=== PATIENT | female | born 1960 | race Caucasian/White ===

== ENCOUNTER 2019-05-24 10:53 | Day surgery (SDC) | payer BC ==
[~2019-05-24 10:53] MED LIST: CEFAZOLIN 2 Gram 2 GM/50 ML BAG IVPB ONE; CELECOXIB 100 MG CAPSULE PO ONE; FAMOTIDINE 20MG TABLET PO ONE; MECLIZINE 25 MG TABLET PO ONE; METOCLOPRAMIDE 10 MG TABLET PO ONE; VANCOMYCIN 1GM/200ML PREMIX 1 GM/200 ML PIGGYBACK IVPB ONE
[2019-05-24] MEDS ORDERED: ROPIVACAINE HCL (NAROPIN) /PF 5MG/ML 20ML VIAL IV ONE (10:54)
[2019-05-24] MEDS ORDERED: MAGNESIUM SULFATE 8 MEQ(1GM)/2ML VIAL IV ONE (10:54)
[2019-05-24] MEDS ORDERED: DEXAMETHASONE 4 MG/ML 1ML VIAL IVP ONE (10:54)
[2019-05-24] MEDS ORDERED: MIDAZOLAM HCL 2MG/2ML VIAL IV ONE (10:54)
[2019-05-24] MEDS ORDERED: PROPOFOL 10 MG/ML VIAL IV ONE (10:54)
[2019-05-24] MEDS ORDERED: KETAMINE HCL 100MG/1ML VIAL INJ ONE (10:54)
[2019-05-24] MEDS ORDERED: RINGERS SOLUTION,LACTATED 1,000 ML IV ONE ×3 (11:20→12:43)
[2019-05-24] MEDS ORDERED: BUPIVACAINE 0.5% W/EPI MPF 30 ML VIAL SQ ONE (12:41)
[2019-05-24] MEDS ORDERED: TRANEXAMIC ACID 1,000 MG/10 ML ML IU ONE (12:41)
[2019-05-24] MEDS ORDERED: TRANEXAMIC ACID 1,000 MG/10 ML ML IV ONE (12:41)
[2019-05-24] MEDS ORDERED: KETOROLAC 30 MG/ML VIAL IVP PRN (13:41)
[2019-05-24] MEDS ORDERED: HYDROCODONE/APAP 10/325 TABLET PO PRN (13:41)
[2019-05-24] MEDS ORDERED: ACETAMINOPHEN 325 MG TAB PO PRN (13:41)
[2019-05-24] MEDS ORDERED: MAGNESIUM HYDROXIDE 30 ML UDC PO PRN (13:41)
[2019-05-24] MEDS ORDERED: DIPHENHYDRAMINE HCL 25 MG CAPSULE PO PRN (13:41)
[2019-05-24] MEDS ORDERED: ZOLPIDEM TARTRATE 5 MG TABLET PO PRN (13:41)
[2019-05-24] MEDS ORDERED: AL HYDROX/MAG HYDROX 30ML UD PO PRN (13:41)
[2019-05-24] MEDS ORDERED: TRAMADOL HCL 50 MG TABLET PO PRN (13:41)
[2019-05-24] MEDS ORDERED: NALOXONE 0.4 MG/1 ML VIAL IVP PRN (13:41)
[2019-05-24] MEDS ORDERED: BISACODYL 10 MG SUPP RC PRN (13:41)
[2019-05-24] MEDS ORDERED: ACETAMINOPHEN W/ CODEINE 300MG/60MG TABLET PO PRN ×2 (13:41)
[2019-05-24] MEDS ORDERED: HYDROMORPHONE HCL 2 MG/ML VIAL IM PRN (13:41)
[2019-05-24] MEDS: POTASSIUM CHLORIDE/D5-0.9%NACL 20 MEQ/1,000 ML BAG IV SCH ×2 (14:43→23:35)
[2019-05-24 15:29] LABS: ABO GROUP A; ANTIBODY SCREEN NEGATIVE (NEGATIVE); RH TYPE NEGATIVE
[2019-05-24] MEDS: PANTOPRAZOLE SODIUM 40 MG TABLET PO SCH (16:41)
[2019-05-24] MEDS: METOPROLOL SUCC 50 MG TABLET PO SCH ×2 (17:12→17:13)
[2019-05-24] MEDS: HYDROCHLOROTHIAZIDE 25 MG TABLET PO SCH (17:15)
[2019-05-24] MEDS: VALSARTAN 80 MG TAB PO SCH (17:15)
[2019-05-24] MEDS: ONDANSETRON HCL IV 4 MG/2 ML VIAL IVP PRN (17:34)
--- NOTE | 2019-05-24 17:47 | Rehab Evaluation ---
Patient Information - Patient Information Diagnosis: DJD L knee Ordered Treatment: PT Evaluate and Treat Status: Initial Evaluation Surgery: Yes (L TKA) Date of Surgery: 05/24/19 Past Medical/Surgical Hx: PAST MEDICAL/SURGICAL HISTORY Surgery to Affected Area? No Recent Surgery? Past Surgical History HYST C SCOPES BILAT CTR BACK INJS. PMH - Respiratory Hx Respiratory Disorders Yes Hx Bronchitis Yes: NOTHING RECENT PMH - Cardiovascular Hx Cardiovascular Disorders Yes Hx Hypertension Yes: ON MEDS WITH FAIR CONTROL Exercise Tolerance Good PMH - Neuro Hx Neurological Disorders No PMH - GI Hx Gastrointestinal Disorders Yes Hx Gastroesophageal Reflux Yes: CONTROLLED WITH MEDS PMH - Hx Genitourinary Disorders No Comment: S/P HYST PMH - Endocrine Hx Endocrine Disorders Yes Hx of IDDM Yes: HYPO ON MEDS PMH - Musculoskeletal Hx Musculoskeletal Disorders Yes Hx Arthritis Yes: LEFT KNEE PMH - Psych Hx Psychiatric Problems No PMH - Hematology/Oncology Hx Hematology/Oncology No Disorders Premorbid Status: Detail (The patient was independent with all mobility prior to surgery.) Social History: Detail (The patient lives with spouse in a one story house with 2 steps at the enterance and no handrails. The bathroom is equipped with a tub/shower combination, standard height toilet and shower bench. No grab bars are present in the bathroom. The patient has a standard walker and single point cane.) Precautions: [place], Fall, Other (WBAT on the L LE.) - Time With Patient Total Time Spent With Patient (Min): 30 Treatment Procedures: Detail (Initial Evaluation, low complexity, gait training) Subjective Information - Subjective Information Per Patient (The patient had minimal complaints of L knee pain. The patient did complain of nausea after ambulating.) Objective Data - Mental Status Patient Orientation: Oriented x3 - Visual Perception Appears within normal limits for therapeutic activities - ROM Not within normal limits (L knee AROM is limited as to be expected following surgery. All other LE AROM is WFL.) - Strength/Tone Not within normal limits (The patient's R LE stength was WFL. The patient's L LE strength was not tested however patient functionally demonstrated weakness ie: patient required assist with L LE with supine to sit.) - Bed Mobility Independent (The patient requires minimal PA with lifting L LE with supine to and from sit, the patient is independent with upper body.) - Transfers Independent (The patient is independent with sit to and from stand transfer.) - Balance Balance Sitting: Good Balance Standing: Good - Sensation Intact - Gait Detail (The patient ambulated with front wheeled walker a distance of 40 feet x 1 with supervision for safety, WBAT on L LE.) Therapy Assessment - Therapy Assessment Detail (The patient was independent with transfers and required supervision for safety only with ambulation. The patient required minimal assistance with lifting LE with bed mobility. The patient will require 1-2 sessions to complete PT goals.) Problem List - Problem List Physical Therapy Problem List: Detail (1) Decreased L knee AROM 2) Decreased L knee strength) Goals - Goals Physical Therapy Goals: 1) The patient will be independent with TKA HEP. 2) The patient will ambulate household distances with appropriate assistive device WBAT on L LE. 3) The patient will ambulate on stairs using proper technique with supervision for safety. Prognosis - Prognosis Good Plan - Plan Physical Therapy Plan: PT 1-2 sessions for gait training on levels and stairs and instruction in HEP.
[2019-05-24] MEDS: HYDROCODONE/APAP 10/325 TABLET PO PRN (18:10)
[2019-05-24] MEDS: DOCUSATE SODIUM 100 MG CAPSULE PO SCH (21:38)
[2019-05-24] MEDS: CEFAZOLIN 2 Gram 2 GM/50 ML BAG IVPB SCH (21:39)
[2019-05-25] MEDS: HYDROCODONE/APAP 10/325 TABLET PO PRN ×4 (01:53→13:54)
[2019-05-25] MEDS: CEFAZOLIN 2 Gram 2 GM/50 ML BAG IVPB SCH ×3 (05:24→17:19)
[2019-05-25 06:43] LABS: HEMATOCRIT 36.5 % (35.0-47.0)
[2019-05-25] MEDS ORDERED: LEVOTHYROXINE SODIUM 100 MCG TABLET PO SCH (07:00)
[2019-05-25 07:05] LABS: BLOOD UREA NITROGEN 9 mg/dL (8-23); CREATININE 0.6 mg/dL (0.5-0.9); EST GLOMERULAR FILTRATION RATE > 60 mL/min; GLUCOSE,RANDOM 135 mg/dL (74-109)
[2019-05-25] MEDS: POTASSIUM CHLORIDE/D5-0.9%NACL 20 MEQ/1,000 ML BAG IV SCH (07:36)
[2019-05-25] MEDS: HYDROCHLOROTHIAZIDE 25 MG TABLET PO SCH (09:34)
[2019-05-25] MEDS: DOCUSATE SODIUM 100 MG CAPSULE PO SCH (09:34)
[2019-05-25] MEDS: METOPROLOL SUCC 50 MG TABLET PO SCH (09:34)
[2019-05-25] MEDS: VALSARTAN 80 MG TAB PO SCH (09:34)
--- NOTE | 2019-05-25 09:49 | Physical Therapy Tx Note ---
Physical Therapy Tx Note - Treatment Note Total Time Spent With Patient: 30 Physical Therapy Tx Note: Detail (Patient stated that she had some pain in the L knee this morning. She was able to transfer to the edge of bed independently with the use of a strap to move and lower the L LE to the ground. Patient ambulated 100 feet over smooth surfaces with a front wheeled walker using WBAT on the L LE with supervision. She was able to complete stair training and demonstarted proper technique ascending and descending 3 stairs. Gianluca stated that she was feeling warm and was wheeled back to her room in a wheelchair and upon returning to bed stated that she felt nauseous. In bed, patient was able to demonstrate proper technique of TKA HEP. Patient was left in bed with her call light and bedside table within reach. The nursing staff was notified of her position.) Physical Therapy Problem List: Detail (1) Decreased L knee AROM 2) Decreased L knee strength) Physical Therapy Goals: 1) The patient will be independent with TKA HEP. GOAL MET. 2) The patient will ambulate household distances with appropriate assistive device WBAT on L LE. GOAL MET. 3) The patient will ambulate on stairs using proper technique with supervision for safety. GOAL MET Prognosis: Good Physical Therapy Plan: Patient has met all inpatient therapy goals at this time.
[2019-05-25] MEDS ORDERED: FERROUS SULFATE 325 MG TAB PO SCH (10:00)
[2019-05-25] MEDS ORDERED: ASPIRIN 81 MG TABEC PO SCH (10:00)
[2019-05-25] MEDS ORDERED: RIVAROXABAN 10 MG TABLET PO SCH (10:00)
[2019-05-25] MEDS: ONDANSETRON HCL IV 4 MG/2 ML VIAL IVP PRN (10:45)
[2019-05-25] MEDS: PANTOPRAZOLE SODIUM 40 MG TABLET PO SCH (10:56)
--- NOTE | 2019-05-25 12:57 | Rehab Evaluation ---
Patient Information - Patient Information Diagnosis: DJD L knee Ordered Treatment: OT Evaluate and Treat Status: Initial Evaluation Surgery: Yes (L TKA) Date of Surgery: 05/24/19 Past Medical/Surgical Hx: PAST MEDICAL/SURGICAL HISTORY Surgery to Affected Area? No Recent Surgery? Past Surgical History HYST C SCOPES BILAT CTR BACK INJS. PMH - Respiratory Hx Respiratory Disorders Yes Hx Bronchitis Yes: NOTHING RECENT PMH - Cardiovascular Hx Cardiovascular Disorders Yes Hx Hypertension Yes: ON MEDS WITH FAIR CONTROL Exercise Tolerance Good PMH - Neuro Hx Neurological Disorders No PMH - GI Hx Gastrointestinal Disorders Yes Hx Gastroesophageal Reflux Yes: CONTROLLED WITH MEDS PMH - Hx Genitourinary Disorders No Comment: S/P HYST PMH - Endocrine Hx Endocrine Disorders Yes Hx of IDDM Yes: HYPO ON MEDS PMH - Musculoskeletal Hx Musculoskeletal Disorders Yes Hx Arthritis Yes: LEFT KNEE PMH - Psych Hx Psychiatric Problems No PMH - Hematology/Oncology Hx Hematology/Oncology No Disorders Premorbid Status: Detail (The patient was independent with all mobility, meal prep, laundry and home mgmt prior to surgery.) Social History: Detail (The patient lives with spouse in a one story house with 2 steps at the entrance and no handrails. The bathroom is equipped with a tub/shower combination with suction grab bar, standard height toilet and shower bench. The patient has a standard walker and single point cane.) Precautions: [place], Fall, Other (WBAT on the L LE.) - Time With Patient Total Time Spent With Patient (Min): 40 Treatment Procedures: Detail (OT eval low complexity) Subjective Information - Subjective Information Per Patient Objective Data - Pain Pain Present: Yes (3-12/01) - Mental Status Patient Orientation: Oriented x3 - Visual Perception Appears within normal limits for therapeutic activities - ROM Within normal limits (Nilson UE AROM WNL) - Strength/Tone Within normal limits (Nilson UE strength WNL) - Coordination Appears within normal limits for therapeutic activities - Bed Mobility Independent (Ind with supine to sit) - Transfers Independent (Ind with sit to stand) - Balance Balance Sitting: Good Balance Standing: Good - Sensation Intact - Gait Detail (Pt ambulating in room with standard walker and SBA.) - ADL's/IADL's Detail (Pt educated and able to demonstrate learning of modified LE dressing techniques including donning julien sock (with assist), donning pants and tennis shoes. Pt educated re: kitchen and shower safety and modifications, pt able to verbalize understanding.) Therapy Assessment - Therapy Assessment Detail (Pt is Ind with modified LE dressing techniques.) Problem List - Problem List Physical Therapy Problem List: Detail (1) Decreased L knee AROM 2) Decreased L knee strength) Occupational Therapy Problem List: Detail (No current IP OT problems identified.) Goals - Goals Physical Therapy Goals: 1) The patient will be independent with TKA HEP. GOAL MET. 2) The patient will ambulate household distances with appropriate assistive device WBAT on L LE. GOAL MET. 3) The patient will ambulate on stairs using proper technique with supervision for safety. GOAL MET Occupational Therapy Goals: No current IP OT goals identified. Prognosis - Prognosis Good Plan - Plan Physical Therapy Plan: Patient has met all inpatient therapy goals at this time. Occupational Therapy Plan: No further IP OT recommended. thank you for this referral.
--- NOTE | 2019-06-06 08:20 | Operative Note ---
DATE OF SURGERY: 05/24/2019 PREOPERATIVE DIAGNOSIS: End-stage arthrosis of the left knee. POSTOPERATIVE DIAGNOSIS: End-stage arthrosis of the left knee. OPERATION: Cemented left total knee arthroplasty using Magana [employer] Nephew Radha II components with a size 4 Oxinium femur, a size 3 stemmed tibia baseplate, an 11 mm lipped highly crosslinked tibial insert. The patella was not resurfaced because it was too thin. STAFF SURGEON: Marcel Nixon MD ANESTHESIA: Spinal. PREPARATION: Chloraprep. CERTIFIED NOVELL ENGINEER: Mrs. Alysa Olivera INDIVIDUAL CONSIDERATIONS: None. PROCEDURE: The patient was taken to the operating room, placed supine on the operating room table. She had a successful induction of a spinal anesthetic. The left lower extremity was prepped and draped in the usual fashion. The limb was elevated and tourniquet was inflated to 250 mmHg. Sharp dissection carried down through skin and subcutaneous tissue. Small veins were coagulated with a Bovie. A medial arthrotomy was performed. The patella was everted and the knee was flexed. The patient had exposed bone throughout. Fat pad was resected, ACL was sacrificed, and provisional anterior meniscectomies were performed. The capsule was released from the medial proximal tibia. The initial femoral lathe turner hole was then made freehand. The intramedullary femoral cutting jig was placed. It was cut in 7.0 degrees of valgus and adjusted for rotation and secured with pins for a 10 mm resection. The initial transverse cut was then made. The skin guide was placed for the anterior and posterior lathe turner holes. It was found that a size 4 would be appropriate. The anterior and posterior cuts followed by chamfer cuts were made. Osteophytes removed, and a size 4 trial was placed and found to fit well. The tibia was brought forward, and the remainder of the meniscal remnants removed with a Bovie. The extraarticular tibial cutting jig was placed. It was cut in neutral with a 3-degree AP slope. It was set for a 9 mm resection keyed off the high lateral side and secured with pins. When cutting the tibia, care was taken to preserve the PCL insertion on the tibia. After removing osteophytes, I could fit a size 3. It was adjusted for rotation and secured with pins. With an 11 mm liner and femoral trial, there was excellent motion and stability. Ligamentous balance, rotation, and alignment were thought to be normal. Femoral lathe turner holes were impacted and the tibial keel stamp was impacted, and these trial components were removed. The patient unfortunately had a very thin patella measuring I think only 17 mm, so resurfacing was out of the question because she was a bit heavy and I was worried about fracture from cutting the patella. I elected to just remove osteophytes. After thorough irrigation, hemostasis was obtained with a Bovie posteriorly after dropping the tourniquet briefly. Again irrigation. A size 3 stemmed tibia baseplate was cemented into place followed by impaction of the 11 mm lipped highly crosslinked tibial insert followed by cementing in the size 4 Oxinium femur. The implant surfaces were compressed, excess cement was removed. After the cement had set, there was excellent motion and stability. Ligamentous balance, rotation, alignment, and patellofemoral tracking were normal. No lateral release was required. After irrigation to remove any visual or palpable debris, I went ahead and obtained hemostasis with a Bovie after dropping the tourniquet. I then infiltrated the skin and subcu with 30 mL of 0.5% Marcaine with epinephrine along with infiltrating the periosteum. The capsule was then closed with a running #2 quill, subcu was closed in layers with running 0 quill, skin was closed with trish. I mixed 1 g of tranexamic acid with 30 mL of saline and injected into the knee through a sterile 18-gauge needle, and a sterile bulky compressive KYLEIGH-type dressing was applied. The patient tolerated the procedure well. Needle and sponge counts were correct. Estimated blood loss was less than 50 mL and she was taken back to recovery in good condition. There were no complications. SERGEI
== END 2019-05-25 17:00 | disposition home or self-care (01) ==
LOC: SUR 10:53 → MEDSURG 14:38 → SUR 05-25 17:00
PROVIDERS: ATTEND Orthopaedic Surgery
DX: M17.12 Unilateral primary osteoarthritis, left knee (principal); I10 Essential (primary) hypertension; K21.9 Gastro-esophageal reflux disease without esophagitis; E03.9 Hypothyroidism, unspecified
CPT/HCPCS: 80048; 85014; 85018; 86850; 86900; 86901; J1885; J2405; J3370; J3480; J3490; J7120